=== PATIENT | male | born 1990 | race Caucasian/White ===

== ENCOUNTER 2022-09-25 13:00 | Inpatient (IN) | payer OTHER ==
[~2022-09-25] VITALS: Ht 177.8 cm; Wt 145.4 kg
[2022-09-25] MEDS ORDERED: ONDANSETRON HCL 4 MG/2 ML VIAL IVP ONE (13:30)
[2022-09-25] MEDS ORDERED: LOPERAMIDE HCL 2 MG CAPSULE PO ONE (13:30)
[2022-09-25] MEDS ORDERED: SODIUM CHLORIDE 0.9% 1,000 ML IV ONE (13:30)
[2022-09-25] MEDS ORDERED: KETOROLAC TROMETHAMINE 30 MG/ML VIAL IVP ONE (13:30)
[2022-09-25 13:56] LABS: EOSINOPHILS % (AUTO) 0.1 % (1.0-6.0); HEMATOCRIT 40.1 % (41-53); HEMOGLOBIN 13.9 g/dL (13.5-17.5); LYMPHOCYTES % (AUTO) 13.7 % (22.0-44.0); MEAN CORPUSCULAR HEMOGLOBIN 28.5 pg (26.0-34.0); MEAN CORPUSCULAR HGB CONC 34.7 G/dL (31.0-37.0); MEAN CORPUSCULAR VOLUME 82 fL (80-100); MONOCYTES # (AUTO) 0.3 K/uL (0.1-1.0); MONOCYTES % (AUTO) 3.7 % (2.0-9.0); NEUTROPHILS # (AUTO) 5.9 K/uL (1.8-7.7); NEUTROPHILS % (AUTO) 81.5 % (40.0-70.0); PLATELET COUNT (AUTO) 294 K/uL (150-450); RED BLOOD CELL COUNT(AUTO) 4.87 MIL/uL (4.50-5.90); RED CELL DISTRIBUTION WIDTH 13.5 % (11.5-14.5)
[2022-09-25 14:06] LABS: ANION GAP 5 mmol/L (8-16); CALCIUM, TOTAL 8.9 mg/dL (8.8-10.5); CARBON DIOXIDE 27 mmol/L (22-29); CHLORIDE 104 mmol/L (98-107); CREATININE 0.68 mg/dL (0.60-1.30); GLOMERULAR FILTR. RATE CALC > 60 mL/min (>60); GLUCOSE,RANDOM 120 mg/dL (70-110); SODIUM SERUM 136 mmol/L (136-145)
[2022-09-25 14:12] LABS: ALANINE AMINOTRANSFERASE 109 U/L (12-78); ALBUMIN 3.4 g/dL (3.4-5.0); ALKALINE PHOSPHATASE 143 U/L (46-116); ASPARTATE AMINOTRANSFERASE 48 U/L (15-37); BILIRUBIN,TOTAL 0.4 mg/dL (0.1-1.0); TOTAL PROTEIN, SERUM 7.8 g/dL (6.4-8.2)
[2022-09-25] MEDS ORDERED: ACETAMINOPHEN 325 MG TABLET PO PRN (15:00)
[2022-09-25] MEDS ORDERED: ONDANSETRON HCL 4 MG/2 ML VIAL IVP PRN (15:00)
[2022-09-25] MEDS ORDERED: LOPERAMIDE HCL 2 MG/15 ML SUSPENSION UDCUP PO PRN (16:45)
[2022-09-25] MEDS ORDERED: DICYCLOMINE HCL 10 MG CAPSULE PO PRN (16:45)
[2022-09-25] MEDS ORDERED: MAG HYDROX/AL HYDROX/SIMETH ES 30 ML SUSPENSION UDCUP PO PRN (16:45)
[2022-09-25] MEDS ORDERED: HydrOXYzine PAMOATE 50 MG CAPSULE PO PRN (16:45)
[2022-09-25] MEDS: SODIUM CHLORIDE 0.45% 1,000 ML IV SCH (16:55)
[2022-09-25 16:59] LABS: AMPHET/METH SCREEN,URINE NEGATIVE (NEGATIVE); BARBITURATE SCREEN, URINE NEGATIVE (NEGATIVE); BENZODIAZEPINES SCREEN,URINE NEGATIVE (NEGATIVE); CANNABINOID SCREEN,URINE NEGATIVE (NEGATIVE); COCAINE SCREEN,URINE NEGATIVE (NEGATIVE); METHADONE SCREEN, URINE NEGATIVE (NEGATIVE); OPIATE SCREEN,URINE NEGATIVE (NEGATIVE); PHENCYCLIDINE SCREEN,URINE NEGATIVE (NEGATIVE)
[2022-09-25 21:30] VITALS: BP 124/79; PULSE 82; RESP 20; TEMP 97.9
[2022-09-25] MEDS: BACLOFEN 10 MG TABLET PO PRN (21:36)
[2022-09-25] MEDS: LORazepam 1 MG TABLET PO PRN (21:36)
[2022-09-25] MEDS: PROMETHAZINE HCL 25 MG TABLET PO PRN (21:36)
[2022-09-25] MEDS: TraZODone HCL 50 MG TABLET PO PRN (21:37)
[2022-09-26 04:35] VITALS: BP 144/92; PULSE 84; RESP 18; TEMP 97.5
[2022-09-26] MEDS: LORazepam 1 MG TABLET PO PRN ×3 (06:45→23:50)
[2022-09-26] MEDS: CloNIDine HCL 0.1 MG TABLET PO PRN ×2 (06:45→23:50)
[2022-09-26] MEDS: BACLOFEN 10 MG TABLET PO PRN ×2 (06:45→17:05)
[2022-09-26] MEDS: SODIUM CHLORIDE 0.45% 1,000 ML IV SCH ×2 (06:46→18:16)
[2022-09-26 07:48] VITALS: BP 139/69; PULSE 78; RESP 20; TEMP 97.5
[2022-09-26] MEDS: ACETAMINOPHEN 325 MG TABLET PO PRN ×2 (12:08→20:26)
[2022-09-26 15:22] VITALS: BP 141/71; PULSE 81; RESP 20; TEMP 97.7
[2022-09-26] MEDS: PROMETHAZINE HCL 25 MG TABLET PO PRN (16:59)
[2022-09-26 20:06] VITALS: BP 120/65; PULSE 87; RESP 20; TEMP 98.4
[2022-09-26] MEDS: TraZODone HCL 50 MG TABLET PO PRN (20:26)
[2022-09-26] MEDS: IBUPROFEN 600 MG TABLET PO PRN (23:50)
[2022-09-26 23:56] VITALS: BP 149/81; PULSE 77; RESP 18
[2022-09-27] MEDS: ACETAMINOPHEN 325 MG TABLET PO PRN ×2 (05:37→17:52)
[2022-09-27] MEDS: BACLOFEN 10 MG TABLET PO PRN (05:38)
[2022-09-27 06:10] VITALS: BP 123/79; PULSE 73; RESP 20; TEMP 98.5
[2022-09-27] MEDS: SODIUM CHLORIDE 0.45% 1,000 ML IV SCH (07:38)
[2022-09-27 08:06] VITALS: BP 119/79; PULSE 71; RESP 20; TEMP 98.6
[2022-09-27] MEDS: PROMETHAZINE HCL 25 MG TABLET PO PRN (08:09)
[2022-09-27] MEDS: IBUPROFEN 600 MG TABLET PO PRN (10:45)
[2022-09-27] MEDS: LORazepam 1 MG TABLET PO PRN (10:46)
[2022-09-27] MEDS ORDERED: ONDANSETRON HCL 4 MG/2 ML VIAL IVP PRN (12:00)
[2022-09-27 16:23] VITALS: BP 121/75; PULSE 74; RESP 20; TEMP 98.4
[2022-09-27 19:32] VITALS: BP 154/88; PULSE 80; RESP 20; TEMP 98.1
[2022-09-27 20:50] VITALS: BP 136/70; PULSE 75
[2022-09-27] MEDS: TraZODone HCL 50 MG TABLET PO PRN (20:51)
[2022-09-28] MEDS: IBUPROFEN 600 MG TABLET PO PRN (01:28)
[2022-09-28 05:46] VITALS: BP 139/85; PULSE 83; RESP 20; TEMP 98.2
[2022-09-28 07:32] VITALS: BP 143/92; PULSE 86; RESP 20; TEMP 99
[2022-09-28] MEDS: PROMETHAZINE HCL 25 MG TABLET PO PRN (08:03)
[2022-09-28 15:01] VITALS: BP 138/78; PULSE 73; RESP 20; TEMP 98.5
[2022-09-28 19:49] VITALS: BP 131/91; PULSE 91; RESP 20; TEMP 97.9
[2022-09-28] MEDS: TraZODone HCL 50 MG TABLET PO PRN (21:19)
[2022-09-29 03:43] VITALS: BP 144/87; PULSE 79; RESP 20; TEMP 98.6
[2022-09-29 19:56] VITALS: BP 141/88; PULSE 80; RESP 20; TEMP 98.1
[2022-09-29] MEDS: TraZODone HCL 50 MG TABLET PO PRN (20:55)
[2022-09-30] VITALS (7 sets, daily range): BP systolic 136–159; BP diastolic 75–94; PULSE 81–88; RESP 20; TEMP 98.4–98.6
[2022-09-30] MEDS: CloNIDine HCL 0.1 MG TABLET PO PRN ×2 (07:57→13:19)
[2022-09-30] MEDS ORDERED: AMLO-257 PO (14:13)
[2022-09-30] MEDS ORDERED: AmLODIPine BESYLATE 5 MG TABLET PO ONE (14:15)
[2022-09-30] MEDS ORDERED: ACET-2247 PO (14:34)
[2022-09-30] MEDS ORDERED: LOPE-232 PO (14:36)
[2022-09-30] MEDS ORDERED: MILK PO (14:41)
[2022-09-30] MEDS ORDERED: MAGN-169 PO ×2 (14:43→14:46)
[2022-09-30] MEDS ORDERED: MAG30ORA19 PO (14:55)
== END 2022-09-30 18:30 | DRG 897 ==
LOC: EMS 13:04 → 6S 20:05
PROVIDERS: ADMIT Hospitalist; ATTEND Hospitalist
DX: F11.13 Opioid abuse with withdrawal (principal); E44.0 Moderate protein-calorie malnutrition; R52 Pain, unspecified; R74.01 Elevation of levels of liver transaminase levels; Z68.42 Body mass index [BMI] 45.0-49.9, adult; E66.01 Morbid (severe) obesity due to excess calories
CPT/HCPCS: 80053; 80307; 85025; 99285; J1885; J2405; J7030

== ENCOUNTER 2022-10-04 10:43 | Inpatient (IN) | payer OTHER ==
[~2022-10-04] VITALS: Ht 175.3 cm; Wt 145.4 kg
[~2022-10-04 10:43] MED LIST: ACET-2247 PO; AMLO-257 PO; LOPE-232 PO; MAG30ORA19 PO
[2022-10-04 12:13] LABS: BASOPHILS % (AUTO) 0.5 % (0.0-2.0); EOSINOPHILS % (AUTO) 0.2 % (1.0-6.0); HEMATOCRIT 44.2 % (41-53); LYMPHOCYTES # (AUTO) 3.3 K/uL (1.0-4.8); LYMPHOCYTES % (AUTO) 17.6 % (22.0-44.0); MEAN CORPUSCULAR HEMOGLOBIN 27.8 pg (26.0-34.0); MEAN CORPUSCULAR HGB CONC 33.9 G/dL (31.0-37.0); MEAN CORPUSCULAR VOLUME 82 fL (80-100); MONOCYTES # (AUTO) 1.8 K/uL (0.1-1.0); MONOCYTES % (AUTO) 9.5 % (2.0-9.0); NEUTROPHILS # (AUTO) 13.7 K/uL (1.8-7.7); NEUTROPHILS % (AUTO) 72.2 % (40.0-70.0); PLATELET COUNT (AUTO) 404 K/uL (150-450); RED BLOOD CELL COUNT(AUTO) 5.39 MIL/uL (4.50-5.90); RED CELL DISTRIBUTION WIDTH 13.6 % (11.5-14.5)
[2022-10-04 12:51] LABS: ALANINE AMINOTRANSFERASE 110 U/L (12-78); ALBUMIN 3.8 g/dL (3.4-5.0); ALKALINE PHOSPHATASE 121 U/L (46-116); ANION GAP 16 mmol/L (8-16); ASPARTATE AMINOTRANSFERASE 44 U/L (15-37); BILIRUBIN,TOTAL 1.9 mg/dL (0.1-1.0); CARBON DIOXIDE 20 mmol/L (22-29); CHLORIDE 101 mmol/L (98-107); GLOMERULAR FILTR. RATE CALC > 60 mL/min (>60); GLUCOSE,RANDOM 106 mg/dL (70-110); SODIUM SERUM 137 mmol/L (136-145); TOTAL PROTEIN, SERUM 7.8 g/dL (6.4-8.2)
[2022-10-04 12:54] LABS: POTASSIUM 2.9 mmol/L (3.5-5.1)
[2022-10-04] MEDS ORDERED: POTASSIUM CHLORIDE 20 MEQ ER TABLET PO ONE (13:30)
[2022-10-04 14:24] LABS: COVID AG,FIA SOURCE NASOPHARYNGEAL
[2022-10-04 15:48] LABS: AMPHET/METH SCREEN,URINE POSITIVE (NEGATIVE); BARBITURATE SCREEN, URINE NEGATIVE (NEGATIVE); BENZODIAZEPINES SCREEN,URINE NEGATIVE (NEGATIVE); CANNABINOID SCREEN,URINE NEGATIVE (NEGATIVE); COCAINE SCREEN,URINE NEGATIVE (NEGATIVE); METHADONE SCREEN, URINE NEGATIVE (NEGATIVE); OPIATE SCREEN,URINE NEGATIVE (NEGATIVE); PHENCYCLIDINE SCREEN,URINE NEGATIVE (NEGATIVE)
[2022-10-04] MEDS ORDERED: CloNIDine HCL 0.1 MG TABLET PO PRN (20:30)
[2022-10-04] MEDS ORDERED: LOPERAMIDE HCL 2 MG CAPSULE PO PRN (20:30)
[2022-10-04] MEDS ORDERED: MAG HYDROX/AL HYDROX/SIMETH ES 30 ML SUSPENSION UDCUP PO PRN (20:30)
[2022-10-04] MEDS ORDERED: GuaiFENesin/D-METHORPHAN [SUGAR-FREE] 200-20MG/10 ML SYRUP UDCUP PO PRN (20:30)
[2022-10-04] MEDS ORDERED: IBUPROFEN 600 MG TABLET PO PRN (20:30)
[2022-10-04 20:35] VITALS: BP 154/85; PULSE 108; RESP 20; TEMP 98.8
[2022-10-04] MEDS ORDERED: 0.9% SODIUM CHLORIDE 10 ML SYRINGE IVP PRN (20:45)
[2022-10-04] MEDS ORDERED: ONDANSETRON HCL 4 MG/2 ML VIAL IVP PRN (20:45)
[2022-10-04] MEDS ORDERED: CYANOCOBALAMIN 1,000 MCG/ML VIAL IM ONE (21:00)
[2022-10-04] MEDS: DOCUSATE SODIUM 100 MG CAPSULE PO SCH (21:00)
[2022-10-04] MEDS: CloNIDine HCL 0.1 MG TABLET PO SCH (21:58)
[2022-10-04] MEDS: THIAMINE 100 MG TABLET PO SCH (21:58)
[2022-10-04 23:45] VITALS: BP 144/73; PULSE 93; RESP 18; TEMP 98.6
[2022-10-05 04:20] VITALS: BP 142/90; PULSE 97; RESP 16; TEMP 99.2
[2022-10-05] MEDS: CloNIDine HCL 0.1 MG TABLET PO SCH ×4 (05:10→21:18)
[2022-10-05] MEDS: MULTIVITAMINS WITH MINERALS, THERAPEUTIC TABLET PO SCH (08:33)
[2022-10-05] MEDS: THIAMINE 100 MG TABLET PO SCH ×2 (08:33→21:18)
[2022-10-05] MEDS: FOLIC ACID 1 MG TABLET PO SCH (08:33)
[2022-10-05] MEDS: DOCUSATE SODIUM 100 MG CAPSULE PO SCH ×2 (08:34→21:00)
[2022-10-05] MEDS ORDERED: PANTOPRAZOLE SODIUM 40 MG/VIAL IVP SCH (09:00)
[2022-10-05 09:10] LABS: BASOPHILS % (AUTO) 0.2 % (0.0-2.0); EOSINOPHILS % (AUTO) 0.6 % (1.0-6.0); HEMATOCRIT 44.2 % (41-53); HEMOGLOBIN 15.4 g/dL (13.5-17.5); MEAN CORPUSCULAR HEMOGLOBIN 28.5 pg (26.0-34.0); MEAN CORPUSCULAR HGB CONC 34.9 G/dL (31.0-37.0); MEAN CORPUSCULAR VOLUME 82 fL (80-100); MONOCYTES # (AUTO) 1.1 K/uL (0.1-1.0); MONOCYTES % (AUTO) 8.2 % (2.0-9.0); PLATELET COUNT (AUTO) 299 K/uL (150-450); RED CELL DISTRIBUTION WIDTH 13.6 % (11.5-14.5)
[2022-10-05 09:17] LABS: ANION GAP 13 mmol/L (8-16); CALCIUM, TOTAL 8.4 mg/dL (8.8-10.5); CARBON DIOXIDE 26 mmol/L (22-29); CHLORIDE 101 mmol/L (98-107); CREATININE 0.79 mg/dL (0.60-1.30); GLOMERULAR FILTR. RATE CALC > 60 mL/min (>60); GLUCOSE,RANDOM 115 mg/dL (70-110); SODIUM SERUM 140 mmol/L (136-145)
[2022-10-05 09:19] LABS: POTASSIUM 2.6 mmol/L (3.5-5.1)
[2022-10-05] MEDS ORDERED: HydrOXYzine PAMOATE 50 MG CAPSULE PO PRN (09:45)
[2022-10-05] MEDS ORDERED: DICYCLOMINE HCL 10 MG CAPSULE PO PRN (09:45)
[2022-10-05] MEDS ORDERED: POTASSIUM CHLORIDE 20 MEQ ER TABLET PO ONE ×3 (09:45→21:15)
[2022-10-05 13:10] LABS: C.DIFF GDH ANTIGEN, Stool Negative (Negative); C.DIFF TOXINS A&B, Stool Negative (Negative)
[2022-10-05] MEDS ORDERED: POTASSIUM CHLORIDE 10% 40 MEQ/30 ML LIQUID UDCUP PO ONE (15:00)
[2022-10-05 16:13] VITALS: BP 135/78; PULSE 85; RESP 18; TEMP 98.7
[2022-10-05 19:49] VITALS: BP 123/74; PULSE 93; RESP 18; TEMP 98.1
[2022-10-06 04:50] VITALS: BP 139/95; PULSE 89; RESP 18; TEMP 98.3
[2022-10-06] MEDS: CloNIDine HCL 0.1 MG TABLET PO SCH ×3 (05:49→16:27)
[2022-10-06] MEDS: THIAMINE 100 MG TABLET PO SCH (08:04)
[2022-10-06] MEDS: FOLIC ACID 1 MG TABLET PO SCH (08:04)
[2022-10-06] MEDS: MULTIVITAMINS WITH MINERALS, THERAPEUTIC TABLET PO SCH (08:04)
[2022-10-06] MEDS: DOCUSATE SODIUM 100 MG CAPSULE PO SCH (08:06)
[2022-10-06 08:19] VITALS: BP 123/80; PULSE 76; RESP 20; TEMP 98.3
[2022-10-06] MEDS ORDERED: PANTOPRAZOLE SODIUM 40 MG DR TABLET PO SCH (09:00)
[2022-10-06 12:00] VITALS: BP 115/75
[2022-10-06 16:34] VITALS: BP 129/80; PULSE 93; RESP 20; TEMP 98.2
== END 2022-10-06 18:06 | DRG 71 ==
LOC: EMS 11:01 → 6S 19:23
PROVIDERS: ADMIT Internal Medicine; ATTEND Internal Medicine
DX: G93.41 Metabolic encephalopathy (principal); F11.20 Opioid dependence, uncomplicated; F15.20 Other stimulant dependence, uncomplicated; Z20.822 Contact with and (suspected) exposure to COVID-19; E87.6 Hypokalemia; Z79.899 Other long term (current) drug therapy
CPT/HCPCS: 80048; 80053; 80307; 83735; 84132; 85025; 87324; 87449; 99285; C9113; G0480; J3420